=== PATIENT | male | born 1990 | race Caucasian/White ===

== ENCOUNTER 2018-10-10 22:30 | Emergency (ER) | payer BC, SELFPAY ==
[2018-10-10 22:36] VITALS: BP 139/77; PULSE 74; RESP 20; TEMP 37; O2SAT 97
--- NOTE | 2018-10-10 22:56 | W.ED.GENAD ---
Discharge Plan Disposition Patient Disposition: HOME Condition: Good Discharge Details Chief Complaint: Patient Exposure Risk Clinical Impression: Needle stick injury of finger Primary Care Provider: Jackie Bianchi ED Provider: Art Perrin Home Meds and New Rx's Prescriptions: No Action No Known Home Meds RF: 0 Discharge Instructions Instructions: Needle Stick Injuries (ED) Additional Instructions: He will be contacted if any of your results are positive. If you notice any worsening of your symptoms, or any new symptoms such as vomiting, diarrhea, fever, chills, shortness of breath, chest pain, numbness, weakness, or fainting , please return immediately to the emergency department for reevaluation. Please follow up with your primary care provider as soon as possible for reassessment and reevaluation. As always, it was a pleasure participating in your medical care today. Referrals: Jackie Bianchi [Primary Care Provider] - Medical Decision Making This is a pleasant 28-year-old male who presents today for evaluation after having a small superficial abrasion/skin removal secondary to a dirty razor from a prisoner. It occurred roughly 1-2 hours prior to arrival. Tetanus is up-to-date. No evidence of active bleeding. Patient was sent here by his commander. No other abnormalities on physical exam. At a long and thorough discussion with the patient regarding the risks and benefits of HIV prophylaxis, at this time he does not want any HIV prophylaxis at this time. We will draw the labs for hepatitis, and HIV, he will be contacted if these are positive. We discussed red flags which to return the patient understands. I have extensively reviewed the treatment plan and discharge instructions with the patient. I have addressed all patient concerns at this time. The patient was made aware of what symptoms to monitor for that would warrant a return to the emergency department. Discussed the plan with the patient, they demonstrate verbal understanding and agreement with our assessment and plan at this time. HPI General Date/Time Provider Initiated Documentation: 10/10/18 22:45. 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 He got cut with a dirty razor at the half-way. Immediately started bleeding, he immediately washed it with soap and water. Immunizations are up-to-date including tetanus. He denies any associated numbness tingling or weakness. He denies any persistent pain. He has no other complaints at this time. He does not know the HIV or hepatitis status of the person who is using the razor. He denies any IV or illicit drug use, recent surgeries or pertinent family history. He has no other complaints at this time. Related Data Home Medications Medication Instructions Recorded Confirmed Unknown [No Known Home Meds] 10/10/18 10/10/18 Allergies Allergy/AdvReac Type Severity Reaction Status Date / Time naproxen [From Treximet] Allergy Unverified 10/10/18 22:38 sumatriptan [From Treximet] Allergy Unverified 05/31/17 02:39 General Stated Complaint: Patient Exposure Risk LAVERNE: 3 Review of Systems Review of Systems All systems reviewed & are unremarkable except as noted in HPI and below PFSH Social History Smoking/Tobacco Use Status: Current every day Exam Narrative Exam Narrative: 1.Const: Well-nourished, Well-developed, appearing stated age 2.Eyes: PERRL, no conjunctival injection, and symmetrical lids. 3.ENT: Atraumatic external nose and ears. Moist MM. Neck: Symmetric, trachea midline, No thyromegaly. 4.CVS: +S1/S2, No murmurs or gallops. Peripheral pulses 2+ and equal in all extremities. Brisk capillary refill in all extremities. 5.RESP: Unlabored respiratory effort. Clear to auscultation bilaterally. No wheezes rales or rhonchi 6.GI: Soft, Nontender/Nondistended, No hepatosplenomegaly. No guarding or rebound. 7.MSK: Normocephalic/Atraumatic, Extremities w/o deformity or ttp No cyanosis or clubbing, Normal movement of all extremities 8.Skin: Warm, Dry. There is a very small abrasion/superficial skin removal present on the distal tip of the ring finger on his left hand. No active bleeding, no signs of deep tissue involvement. No other abnormality. No presence of foreign body. 9.Neuro: credit control assistant II-XII grossly intact. Sensation grossly intact, no focal neurologic deficits. 10.Psych: (AAO) x3. Appropriate mood and affect Course Vital Signs Temperature 37.0 C 10/10/18 22:36 Pulse 74 10/10/18 22:36 Respiratory Rate 20 10/10/18 22:36 Blood Pressure 139/77 10/10/18 22:36 Pulse Oximetry 97 10/10/18 22:36 Temperature 37.0 C 10/10/18 22:36 Temperature Source Temporal Artery Scan 10/10/18 22:36 Pulse 74 10/10/18 22:36 Respiratory Rate 20 10/10/18 22:36 Respiratory Effort Non-Labored 10/10/18 22:36 Blood Pressure 139/77 10/10/18 22:36 Blood Pressure Position Sitting 10/10/18 22:36 Pulse Oximetry 97 10/10/18 22:36 Oxygen Delivery Method Room Air 10/10/18 22:36 Oxygen Flow Rate 0 10/10/18 22:36 Pain Level 0 10/10/18 22:36
[2018-10-10 23:32] LABS: HIV 1/2 Ab Rapid Negative (Negative)
[2018-10-12 11:24] LABS: Hepatitis A Antibody IgM Negative (NEGAT); Hepatitis B Core Antibody Negative (NEGAT); Hepatitis B surface Ag Negative (NEGAT); Hepatitis C Ab w Rflx HCV PCR Negative (NEGAT)
[2018-10-15 15:03] LABS: HIV-1 RNA Quantification Undetected copies/mL (UNDECT)
== END 2018-10-10 23:08 | disposition home or self-care (01) ==
PROVIDERS: Emergency Provider Student in an Organized Health Care Education/Training Program; PCP Nurse Practitioner Family
DX: S60.415A Abrasion of left ring finger, initial encounter (principal); W26.8XXA Contact with other sharp object(s), not elsewhere classified, initial encounter; Z20.9 Contact with and (suspected) exposure to unspecified communicable disease
CPT/HCPCS: 86704; 86709; 86803; 87340; 87536; 99283

== ENCOUNTER 2019-04-24 22:37 | Emergency (ER) | payer BC, SELFPAY ==
[2019-04-24 22:38] VITALS: BP 128/82; PULSE 76; RESP 16; TEMP 36.5; O2SAT 96
--- NOTE | 2019-04-24 23:04 | W.ED.GENAD ---
Discharge Plan Disposition Patient Disposition: HOME Condition: Stable Discharge Details Chief Complaint: Headache Clinical Impression: Headache, migraine, Chronic pain in right shoulder Primary Care Provider: Jackie Bianchi ED Provider: Mazin Aponte Home Meds and New Rx's Prescriptions: Continued prochlorperazine maleate 5 mg tablet 5 mg PO Q8H PRN (Reason: headache, nausea) Qty: 15 RF: 0 Discharge Instructions Instructions: Migraine Headache (ED), Shoulder Pain (ED) Additional Instructions: Return immediately to the emergency department for any new or worsening symptoms, change in your headache pattern, or further concerns. Otherwise it is very important that you follow-up with orthopedist for reassessment of your shoulder pain and follow-up with your primary care provider for reassessment of your headaches if you continue to have them and need different control medications. Stand Alone Forms: Work Release Referrals: Marty Carl [ [facility]IC[facility]] - (For follow-up of your shoulder pain) Jackie Bianchi [Primary Care Provider] - 1 week (For reassessment of your headaches) Discharge Data Discharge Date/Time-TO BE ENTERED AT DEPARTURE: 04/25/19 00:00 Medical Decision Making Patient presenting the emergency department for chief complaint of headache. Patient states that when he awoke this morning he noticed a slight headache that he thought was tension related. Patient states long ongoing chronic history of headaches which she has seen neurology for. Patient also states chronic right shoulder pain [facility] Patient denies any reinjury or trauma to right shoulder just occasional pain and discomfort. Patient has completely normal neurological exam, and exam of right shoulder shows full range of motion, no strength deficiency, tenderness to AC joint otherwise unremarkable exam. Given patient has postsurgical pain with no acute findings and no acute injury I do not feel that any emergent work-up is needed for this complaint at this time. Patient was encouraged to follow-[facility] with [facility]. As far as migraine goes patient states similar migraines in the past, not worst headache of life, no fever no chills, no acute physical exam findings of concern so plan to treat with IV fluids, ketorolac, Compazine, and Benadryl and reassess patient. Patient reassessed and has no new or worsening symptoms but still does state slight migraine headache but has had some improvement. Given patient's history of migraine headaches but no other worrisome findings I do feel patient is able to be safely discharged. Patient was represcribed his Compazine as recommended for his breakthrough headaches otherwise patient should follow-up with his primary care provider for reassessment of his headaches. Given patient's chronic right shoulder pain I informed patient he should follow-up with his orthopedic surgeon given that this is a postsurgical complaint. Patient was given a work note for 1 day and return precautions were discussed. HPI General Mode of arrival: ambulatory. Date/Time Provider Initiated Documentation: 04/24/19 22:42. Limitations to Documentation: no limitations. Information obtained by: patient, RN notes reviewed and old records reviewed. History of Present Illness 28 year old M presents to the emergency department with the chief complaint of Migraine headache, right shoulder pain, described as similar to prior episodes, with intensity rated at 7. Quality is described as aching, and is localized to the head. Patient started experiencing this hour(s) (15) and it has been constant. No relieving factors improve symptom(s), No exacerbating factors reported . Related Data Home Medications Medication Instructions Recorded Confirmed prochlorperazine maleate 5 mg PO Q8H PRN #15 tab 04/24/19 Previous Rx's Medication Instructions Recorded prochlorperazine maleate 5 mg PO Q8H PRN #15 tab 04/24/19 Allergies Allergy/AdvReac Type Severity Reaction Status Date / Time naproxen [From Treximet] Allergy Unverified 01/08/19 09:59 sumatriptan [From Treximet] Allergy Unverified 01/08/19 09:59 General Stated Complaint: Headache LAVERNE: 3 Review of Systems Constitutional Denies chills, Denies fever(s) and Reports headache(s) Eyes Denies change in vision ENT Denies dizziness and Reports headache(s) Cardiovascular Denies chest pain and Denies syncope Gastrointestinal Reports nausea and Reports vomiting Musculoskeletal Reports arthralgias (Right shoulder pain-chronic postsurgical) Neurologic Reports as per HPI, Denies dizziness, Denies syncope, Reports headache(s) and Denies sensory deficit [facility] Medical History Headache, chronic migraine without aura (Acute) Injury of right shoulder (Acute) Tinnitus (Acute) Tobacco use (Acute) Surgical History H/O left knee surgery (Acute) Status post AC joint resection (Acute) Family History Mother Migraines Social History Smoking/Tobacco Use Status: Current every day Tobacco Type: cigarettes Alcohol Intake: current Alcohol Intake frequency: a few times a week Drug use: Never Do you feel safe at home: Yes Do you feel safe in your relationship?: Yes Exam Const General: cooperative, healthy appearing, no acute distress and well groomed Orientation: alert, awake and oriented x3 HENMT Head: normal to inspection Ears: hearing grossly normal bilaterally and TM's normal bilaterally Mouth: oral mucosae normal and moist mucous membranes Throat: posterior oropharynx normal Eyes Visual Cobb: normal visual cobb by confrontation Alignment and Position: alignment normal Periorbital: periorbital findings normal Eyelids: eyelids normal Sclera: sclerae normal Cornea: corneas normal Pupils: PERRL EOM: EOM intact bilaterally Neck Neck: normal visual inspection, full ROM, no lymphadenopathy and no meningeal signs Resp Effort & Inspection: normal respiratory effort and able to speak in complete sentences Auscultation: clear to auscultation bilaterally Cardio Rate: regular rate Rhythm: regular rhythm Heart Sounds: S1 normal and S2 normal Neuro General: alert, awake, oriented x3, gait normal, tone normal, moves all extremities, CN's II-XI intact bilaterally and not confused Cognition: normal cognition Speech: speech normal Motor: muscle tone normal throughout, strength 5/5 throughout, no pronator drift, no movement abnormalities noted and no fasciculations Sensory Exam: no sensory deficits noted Coordination: Romberg test normal and Does not sway with eyes open Extrem Right upper extremity: shoulder/upper arm Details: normal to inspection, tenderness Location: of the A-C joint, axillary nerve sensory function normal and normal ROM; no crepitus and no deformity Course Vital Signs Temperature 36.5 C 04/24/19 22:38 Pulse 76 04/24/19 22:38 Respiratory Rate 16 04/24/19 22:38 Blood Pressure 128/82 04/24/19 22:38 Pulse Oximetry 96 04/24/19 22:38 Temperature 36.5 C 04/24/19 22:38 Temperature Source Skin 04/24/19 22:38 Pulse 76 04/24/19 22:38 Respiratory Rate 16 04/24/19 22:38 Respiratory Effort Non-Labored 04/24/19 22:42 Blood Pressure 128/82 04/24/19 22:38 Blood Pressure Position Sitting 04/24/19 22:38 Pulse Oximetry 96 04/24/19 22:38 Oxygen Delivery Method Room Air 04/24/19 22:38 Oxygen Flow Rate 0 04/24/19 22:38
[2019-04-24] MEDS: Ketorolac 30 MG/ML VIAL IVP (23:10)
[2019-04-24] MEDS: Prochlorperazine 10 MG/2 ML VIAL 5 MG IVP (23:11)
[2019-04-24] MEDS: diphenhydrAMINE 50 MG/ML VIAL 25 MG IVP (23:11)
[2019-04-24] MEDS: Normal Saline 1,000 ML 1000 ML IV (23:12)
[2019-04-25 00:29] VITALS: BP 122/62; PULSE 68; RESP 16; TEMP 36.5; O2SAT 98
== END 2019-04-25 | disposition home or self-care (01) ==
PROVIDERS: Emergency Provider Nurse Practitioner Family; PCP Nurse Practitioner Family
DX: G43.909 Migraine, unspecified, not intractable, without status migrainosus (principal); M25.511 Pain in right shoulder; G89.29 Other chronic pain; R11.2 Nausea with vomiting, unspecified
CPT/HCPCS: 96361; 96374; 96375; 99284; J0780; J1200; J1885

== ENCOUNTER 2019-10-24 12:25 | Emergency (ER) | payer BC, SELFPAY ==
[2019-10-24 12:28] VITALS: BP 142/83; PULSE 78; RESP 18; TEMP 36.8; O2SAT 97
[2019-10-24] MEDS: Normal Saline 1,000 ML 1000 ML IV (13:00)
[2019-10-24 13:15] LABS: HCT 40.9 % (40.0-50.0); HGB 14.7 g/dL (13.5-17.5); Mean Corp. HGB Concentration 35.9 g/dL (32.0-36.0); Mean Corpuscular Hemoglobin 32.1 pg (27.0-33.0); Mean Corpuscular Volume 89.3 fL (80-95); Mean Platelet Volume 9.8 fL (8.0-11.0); Platelet Count 281 x1000/uL (130-400); RBC 4.58 m/cumm (4.50-6.00); RBC Distribution Width 13.1 % (11.8-14.1); White Blood Cell Count 10.91 k/cumm (4.4-10.8)
--- NOTE | 2019-10-24 13:20 | ED.GENADUL_ITS ---
Discharge Plan Disposition Patient Disposition: HOME Condition: Stable Discharge Details Chief Complaint: Headache Clinical Impression: Cephalalgia Primary Care Provider: Jackie Bianchi ED Provider: Aston Khan Home Meds and New Rx's Prescriptions: Continued prochlorperazine maleate 5 mg tablet 5 mg PO Q8H PRN (Reason: headache, nausea) Qty: 15 RF: 0 Discharge Instructions Instructions: General Headache (ED) Additional Instructions: At this time your symptoms have drastically improved. Pain is now a 2 out of 10, you have no nausea, and your light sensitivity has almost resolved completely. Continue taking your current medications as directed, you may also add on [id number] Tylenol and/or Motrin as directed for discomfort. Please watch for new or worsening symptoms and return to the ER for any concerns. I do recommend reaching out to your neurology team for prompt outpatient reevaluation Medical Decision Making 29-year-old gentleman with a longstanding history of similar headaches, having already been worked up by neurology, presents for a progressing headache that began late over night, early this morning. Associated with his typical photophobia, nausea, vomiting. He took his Compazine with little relief. Patient is neurologically intact, appears well, no acute distress. CBC and CMP were ordered per protocol prior to my evaluation. No meningeal signs, no signs of infection. No clear indication for imaging of his head-brain or LP. Will give IV fluid, Benadryl, Toradol and Reglan followed by reassessment. Upon reassessment patient reports his pain has come down from an 8 now down to a 2, denies any nausea whatsoever, and reports only minimal photophobia. Patient appears well, no distress whatsoever, and remains neurologically intact. Discussed our options, he is comfortable with discharge. He will contact his neurology team for follow-up otherwise return to the ER for new or evolving symptoms. Medical Records Medical records reviewed: Yes I reviewed the patient's medical records. Lab Data Lab results reviewed: Yes I reviewed the patient's lab results. Lab results narrative: Laboratory Tests Range/Units 10/24/19 10/24/19 12:57 12:57 WBC (4.4-10.8) k/cumm 10.91 H RBC (4.50-6.00) m/cumm 4.58 Hgb (13.5-17.5) g/dL 14.7 Hct (40.0-50.0) % 40.9 MCV (80-95) fL 89.3 MCH (27.0-33.0) pg 32.1 MCHC (32.0-36.0) g/dL 35.9 RDW (11.8-14.1) % 13.1 Plt Count (130-400) x1000/uL 281 MPV (8.0-11.0) fL 9.8 Sodium (136-145) mmol/L 142 Potassium (3.5-5.1) mmol/L 3.8 Chloride (98-107) mmol/L 107 Carbon Dioxide (21.0-32.0) mmol/L 24.7 Anion Gap (3-11) mmol/L 10.3 BUN (7-18) mg/dL 12 Creatinine (0.70-1.30) mg/dL 0.82 Estimated GFR/1.73 m2 (mL/min/1.73m2) >= 60.00 Glucose (74-106) mg/dL 111 H Calcium (8.5-10.1) mg/dL 8.2 L Total Bilirubin (0.2-1.0) mg/dL 0.5 AST (15-37) U/L 10 L ALT (16-63) U/L 28 Alkaline Phosphatase (46-116) U/L 75 Total Protein (6.4-8.2) g/dL 6.9 Albumin (3.4-5.0) g/dL 3.9 HPI General Mode of arrival: ambulatory . Date/Time Provider Initiated Documentation: 10/24/19 12:27 . Limitations to Documentation: no limitations . Information obtained by: patient . HPI Narrative: 29-year-old gentleman who presents to the ER complaining of a migraine. Patient reports that he gets these frequently, nearly once a week, and they are very similar. He reports t hat he went to bed last night asymptomatic, woke up sometime throughout the night and had a dull global headache however it has progressed throughout the day and is now an 8 out of 10. It is associated with nausea, vomiting, and photosensitivity. No vomiting. Patient reports that he has been evaluated by neurology for the same in the past, outpatient work-up including imaging has been benign. He denies recent illness or trauma. He denies any visual changes, neck pain, chest pain, abdominal pain, shortness of breath, numbness, tingling, weakness, incontinence. Patient reports that he took his Compazine around 11:00 this morning but then vomited roughly 1 hour later and unsure if he truly received any medications. Related Data Home Medications Medication Instructions Recorded Confirmed prochlorperazine maleate 5 mg PO Q8H PRN #15 tab 04/24/19 10/24/19 Previous Rx's Medication Instructions Recorded prochlorperazine maleate 5 mg PO Q8H PRN #15 tab 04/24/19 Allergies Allergy/AdvReac Type Severity Reaction Status Date / Time naproxen [From Treximet] Allergy Unverified 01/08/19 09:59 sumatriptan [From Treximet] Allergy Unverified 10/24/19 12:32 General Stated Complaint: Headache LAVERNE: 3 Review of Systems Constitutional Constitutional: Denies chills, Denies fatigue, Denies fever(s), Reports headache(s) and Denies weakness Eyes Eyes: Denies change in vision and Denies other visual disturbances ENT Ears, Nose, Mouth, and Throat: Denies vertigo and Reports headache(s) Cardiovascular Cardiovascular: Denies chest pain and Denies dyspnea Respiratory Respiratory: Denies cough and Denies dyspnea Gastrointestinal Gastrointestinal: Denies abdominal pain, Reports nausea and Reports vomiting Musculoskeletal Musculoskeletal: Denies myalgias and Denies tingling Integumentary/Breasts Skin/Breast: Denies rash Neurologic Neurologic: Denies vertigo, Reports headache(s), Denies other visual disturbances, Denies tingling, Denies paresthesias and Denies weakness Endocrine Endocrine: Denies fatigue [facility] Social History Smoking/Tobacco Use Status: Current every day Tobacco Type: cigarettes Alcohol Intake: current Alcohol Intake frequency: a few times a week Drug use: Never Do you feel safe at home: Yes Do you feel safe in your relationship?: Yes Exam Const General: cooperative, healthy appearing, no acute distress and other (Patient lying supine on the stretcher in room 3 in the dark) Orientation: alert, awake and oriented x3 HENMT Head: normal to inspection, normocephalic and atraumatic Ears: external ears normal, TM's normal bilaterally and EAC's normal Mouth: oral mucosae normal and moist mucous membranes Throat: posterior oropharynx normal Eyes General: appearance normal, both eyes and all related structures Eyelids: eyelids normal Conjunctivae: conjunctivae normal Sclera: sclerae normal Cornea: corneas normal Pupils: PERRL EOM: EOM intact bilaterally Direct ophthalmoscopy: normal light reflex Neck Neck: normal visual inspection, full ROM, no meningeal signs, trachea midline and supple Resp Effort & Inspection: normal respiratory effort Auscultation: clear to auscultation bilaterally Cardio Rate: regular rate Rhythm: regular rhythm Skin General skin exam: no rashes or lesions noted Neuro General: alert, awake, oriented x3 and no focal motor deficits Cranial Nerves: CN's II-XI intact bilaterally Cognition: normal cognition Speech: speech normal Motor: muscle tone normal throughout, strength 5/5 throughout, no pronator drift and no movement abnormalities noted Sensory Exam: no sensory deficits noted Extrem General: normal to inspection Psych Appearance: grossly normal Mental Status: mental status grossly normal Course Vital Signs Vital signs: Vital Signs Temperature 36.8 C 10/24/19 12:28 Pulse 78 10/24/19 12:28 Respiratory Rate 18 10/24/19 12:28 Blood Pressure 142/83 H 10/24/19 12:28 Pulse Oximetry 97 10/24/19 12:28 Temperature 36.8 C 10/24/19 12:28 Temperature Source Skin 10/24/19 12:28 Pulse 78 10/24/19 12:28 Respiratory Rate 18 10/24/19 12:28 Respiratory Effort 10/24/19 12:32 Blood Pressure 142/83 H 10/24/19 12:28 Blood Pressure Position Sitting 10/24/19 12:28 Pulse Oximetry 97 10/24/19 12:28 Oxygen Delivery Method Room Air 10/24/19 12:28 Oxygen Flow Rate 0 10/24/19 12:28 Pain Level 8 10/24/19 12:56 Lab/Test Results Lab/Test Results: Laboratory Tests Range/Units 10/24/19 12:57 WBC (4.4-10.8) k/cumm 10.91 H RBC (4.50-6.00) m/cumm 4.58 Hgb (13.5-17.5) g/dL 14.7 Hct (40.0-50.0) % 40.9 MCV (80-95) fL 89.3 MCH (27.0-33.0) pg 32.1 MCHC (32.0-36.0) g/dL 35.9 RDW (11.8-14.1) % 13.1 Plt Count (130-400) x1000/uL 281 MPV (8.0-11.0) fL 9.8
[2019-10-24 13:29] LABS: ALT 28 U/L (16-63); AST 10 U/L (15-37); Albumin 3.9 g/dL (3.4-5.0); Alkaline Phosphatase 75 U/L (46-116); Anion Gap 10.3 mmol/L (3-11); BUN 12 mg/dL (7-18); Bilirubin, Total 0.5 mg/dL (0.2-1.0); CO2 24.7 mmol/L (21.0-32.0); CREATININE 0.82 mg/dL (0.70-1.30); Calcium 8.2 mg/dL (8.5-10.1); Chloride 107 mmol/L (98-107); Glucose 111 mg/dL (74-106); Potassium 3.8 mmol/L (3.5-5.1); Sodium 142 mmol/L (136-145); Total Protein 6.9 g/dL (6.4-8.2)
[2019-10-24] MEDS: diphenhydrAMINE 50 MG/ML VIAL IVP (13:42)
[2019-10-24] MEDS: Metoclopramide 10 MG/2 ML VIAL IVP (13:42)
[2019-10-24] MEDS: Ketorolac 30 MG/ML VIAL IVP (13:42)
[2019-10-24 13:44] VITALS: BP 121/71; PULSE 81; RESP 15; TEMP 36.6; O2SAT 97
== END 2019-10-24 14:15 | disposition home or self-care (01) ==
PROVIDERS: Registered Nurse Emergency; Emergency Provider Physician Assistant; PCP Nurse Practitioner Family
DX: R51 Headache (principal); R11.2 Nausea with vomiting, unspecified; H53.143 Visual discomfort, bilateral
CPT/HCPCS: 36415; 80053; 85027; 96361; 96374; 96375; 99284; 99283; J1200; J1885; J2765

== ENCOUNTER 2024-12-05 11:46 | Emergency (ER) | payer SELFPAY ==
[2024-12-05 11:49] VITALS: BP 124/75; PULSE 113; RESP 14; TEMP 36.9; O2SAT 96
--- NOTE | 2024-12-05 12:08 | ED.GENADUL_ITS ---
Discharge Plan Disposition Patient Disposition: Home Discharge Details Clinical Impression: Uvulitis Primary Care Provider: Unknown,Unknown ED Provider: Jaylen Banerjee Home Meds and New Rx's Prescriptions: New amoxicillin-pot clavulanate 875-125 mg tablet 1 tab PO BID 7 Days Qty: 14 0RF Discharge Instructions Additional Instructions: You were seen in the emergency department for your swollen uvula. The airway structures below your uvula did not look to be swollen. Please take these antibiotics out of an abundance of precaution as directed. If you develop difficulty breathing difficulty swallowing or of any chest pain please return to the emergency department. Otherwise please follow-up with primary care provider. Your symptoms may have been caused by obstructive sleep apnea with the possibility that you irritated your uvula last night. If you are able to work to lose any weight this may prevent this from occurring in the future. For your pain please take medications as follows: 1. Take acetaminophen (Tylenol), 1,000 mg (two 500 mg tabs) every 6 hours [2. Take ibuprofen (Advil), 400 mg every 6 hours.] Discharge Data Discharge Date/Time-TO BE ENTERED AT DEPARTURE: 12/05/24 15:00 HPI General Date/Time Provider Initiated Documentation: 12/05/24 12:07 . HPI Narrative: MDM This is an overall quite well-appearing initially tachycardic but normothermic 34-year-old male with uvulitis but no signs of epiglottitis for which patient was treated with dexamethasone broad-spectrum antibiotics with ceftazidime and observed in the emergency department for approximately 3 hours prior to discharge with strict return indications. Patient is vaccinated so my suspicion was low for bacterial tracheitis and he was not toxic appearing. Handling secretions so epiglottitis less likely. Good range of motion in neck making my suspicion low for retropharyngeal abscess. No pain out of proportion to suggest necrotizing soft tissue infection. Given no preceding fevers no URI symptoms it may be possible, as suggested by Dr. Pete from the ear nose and throat team, that the patient had inadvertently exerted traction on his uvula secondary to possible obstructive sleep apnea last night causing sudden onset swelling this morning. Patient reports that his symptoms were slightly improved following steroids. Out of abundance of caution and in consultation with Dr. Pete discharge patient on 7-day course of amoxicillin clavulanic acid. Patient and I discussed that he should return to the ED if he developed any difficulty breathing any difficulty handling his secretions or any shortness of breath. I offered to set him up with a primary care provider but he noted that he had a primary care provider arranged that he was planning on seeing. Given midline uvula I was not suspicious for peritonsillar abscess. He had a swab that was negative for strep and a second swab that was negative for influenza RSV and COVID. He understood his return indications who was discharged with an empiric trial of expectant outpatient management. 12/05/24 12:46 Tonsil - Not Specified Group A Streptococcus Culture - Pending Laboratory Tests Range/Units 12/05/24 12/05/24 12:31 12:36 WBC (4.4-10.8) 10^3/uL 11.47 H RBC (4.36-5.78) 10^6/uL 4.70 Hgb (13.5-17.5) g/dL 14.9 Hct (40.0-50.0) % 41.7 MCV (80-95) fL 89 MCH (27.0-33.0) pg 31.7 MCHC (32.0-36.0) % 35.7 RDW (11.8-14.1) % 12.5 Plt Count (130-400) 10^3/uL 288 MPV (8.0-11.0) fL 9.4 Immature Gran % % 0.4 Neutrophils % % 80.4 Lymphocytes % % 13.9 Monocytes % % 4.7 Eosinophils % % 0.3 Basophils % % 0.3 Nucleated RBC % (0.0-0.3) % 0.0 Absolute Neutrophils (1.2-6.7) 10^3/uL 9.22 H Absolute Lymphocytes (1.2-3.4) 10^3/uL 1.59 Absolute Monocytes (0.1-0.8) 10^3/uL 0.54 Absolute Eosinophils (0.0-0.7) 10^3/uL 0.03 Absolute Basophils (0.0-0.2) 10^3/uL 0.03 Sodium (136-145) mmol/L 141 Potassium (3.5-5.1) mmol/L 4.1 Chloride (98-107) mmol/L 105 Carbon Dioxide (21.0-32.0) mmol/L 25.0 Anion Gap (3-11) mmol/L 11.0 BUN (7-18) mg/dL 19 H Creatinine (0.70-1.30) mg/dL 1.0 Est GFR (CKD-EPI 2020) (mL/min/1.73m2) 101.92 Glucose (74-106) mg/dL 133 H Calcium (8.5-10.1) mg/dL 9.2 COVID-19 Source Nasopharynx SARS-CoV-2 (PCR) (Negative) Negative Influenza Type A (PCR) (Negative) Negative Influenza Type B (PCR) (Negative) Negative RSV (PCR) (Negative) Negative Abnormal Labs 12/05/24 12:36 WBC 11.47 H Absolute Neutrophils 9.22 H BUN 19 H Glucose 133 H Vital Signs Temperature 36.9 C 12/05/24 14:30 Temperature Source Temporal Artery Scan 12/05/24 14:30 Pulse 89 12/05/24 14:30 Respiratory Rate 15 12/05/24 14:30 Blood Pressure 125/78 12/05/24 14:30 Blood Pressure Position Sitting 12/05/24 11:49 Pulse Oximetry 96 12/05/24 14:30 Oxygen Delivery Method Room Air 12/05/24 14:30 Oxygen Flow Rate 0 12/05/24 14:30 Pain Level 0 12/05/24 14:30 Intake & Output 12/04/24 12/05/24 12/05/24 23:59 11:59 23:59 Intake Total 210 / 210 Balance 210 / 210 Weight 99.79 kg Intake: IV 210 / 210 Abnormal Labs 12/05/24 12:36 WBC 11.47 H Absolute Neutrophils 9.22 H BUN 19 H Glucose 133 H HPI This is a previously healthy 34-year-old male with no significant past medical history not on any home medications arrived in the emergency department via private vehicle in the setting of pain and swelling in the back of his throat. He reported that he had no symptoms last night. He vomited several times today after coughing. He is a daily tobacco user occasionally drinks ethanol but denies IV drug use. He received all his immunizations growing up. He has had no sick contacts recently. No fevers nor nausea. Patient does have some shortness of breath. Exam General: Well-appearing in no acute distress speaking in complete sentences. Head: Normocephalic, atraumatic. Eye: Extraocular eye movements intact. No conjunctival injection. No scleral icterus. Ear, nose, mouth, throat: Markedly swollen uvula. Slightly muffled voice, handling secretions normally. No significant tonsillar swelling. See pictures of uvula had epiglottitis and irregular folds as follows: Neck: Trachea midline. Good range of motion in neck. Cardiovascular: Well-perfused distal extremities. Respiratory: Nonlabored respiration. Clear lungs bilaterally. Gastrointestinal: Nondistended abdomen. Musculoskeletal: No edema. Moving all 4 extremities spontaneously. Skin: Normal for age and race, grossly normal temperature and turgor. No acute rash. Neurologic: Alert and appropriate, no apparent acute deficits. Psychiatric: Mood and manner are appropriate. Grooming and personal hygiene are appropriate. Related Data Home Medications ?Medication ?Instructions ?Recorded ?Confirmed amoxicillin 875 mg-potassium 1 tab PO BID 7 days #14 tabs 12/05/24 clavulanate 125 mg tablet Previous Rx's ?Medication ?Instructions ?Recorded amoxicillin 875 mg-potassium 1 tab PO BID 7 days #14 tabs 12/05/24 clavulanate 125 mg tablet Allergies Allergy/AdvReac Type Severity Reaction Status Date / Time naproxen (From Treximet) Allergy Severe Anaphylaxis Verified 12/05/24 11:56 sumatriptan (From Treximet) Allergy Anaphylaxis Verified 12/05/24 11:56 General Stated Complaint: Sorethroat LAVERNE: 3 Course Vital Signs Vital signs: Vital Signs Temperature 36.9 C 12/05/24 11:49 Pulse 113 H 12/05/24 11:49 Respiratory Rate 14 12/05/24 11:49 Blood Pressure 124/75 12/05/24 11:49 Pulse Oximetry 96 12/05/24 11:49 Temperature 36.9 C 12/05/24 11:49 Temperature Source Temporal Artery Scan 12/05/24 11:49 Pulse 113 H 12/05/24 11:49 Respiratory Rate 14 12/05/24 11:49 Blood Pressure 124/75 12/05/24 11:49 Blood Pressure Position Sitting 12/05/24 11:49 Pulse Oximetry 96 12/05/24 11:49 Oxygen Delivery Method Room Air 12/05/24 11:49 Oxygen Flow Rate 0 12/05/24 11:49 Pain Level 0 12/05/24 11:49 Medical Decision Making Quality:SDOH Health Related Social Needs: 2 No Data to Display PFSH All Active Problems (Updated 12/05/24 @ 14:51 by Jaylen Banerjee MD) Uvulitis (Acute) Cephalalgia (Acute) Medical History (Updated 12/05/24 @ 14:51 by Jaylen Banerjee MD) Headache, chronic migraine without aura Injury of right shoulder Tobacco use Tinnitus Surgical History H/O left knee surgery Status post AC joint resection Family History Mother Migraines Social History Smoking/Tobacco Use Status: Current every day Tobacco Type: cigarettes Smoking risk assessment performed?: Yes Alcohol Intake: current Alcohol Intake frequency: a few times a week Drug use: Never Do you feel safe at home: Yes Do you feel safe in your relationship?: Yes
[2024-12-05] MEDS: Dexamethasone 10 MG/ML VIAL IVP (12:37)
[2024-12-05] MEDS: ACETAMINOPHEN 1,000 MG/100 ML BAG 400 MG IVPB (12:38)
[2024-12-05] MEDS: Normal Saline 1,000 ML 1000 ML IV (12:39)
[2024-12-05] MEDS: Ondansetron 4 MG/2 ML VIAL IVP (12:44)
[2024-12-05 12:46] LABS: Abs Immature Grans 0.05 10^3/uL (0.0-0.06); Absolute Eosinophil Count 0.03 10^3/uL (0.0-0.7); Absolute Lymphocyte Count 1.59 10^3/uL (1.2-3.4); Absolute Monocyte Count 0.54 10^3/uL (0.1-0.8); Absolute Neutrophil Count 9.22 10^3/uL (1.2-6.7); Basophils % 0.3 %; Eosinophils % 0.3 %; HCT 41.7 % (40.0-50.0); HGB 14.9 g/dL (13.5-17.5); Immature Grans % 0.4 %; Lymphocytes % 13.9 %; MCH 31.7 pg (27.0-33.0); MCHC 35.7 % (32.0-36.0); MCV 89 fL (80-95); MPV 9.4 fL (8.0-11.0); Monocytes % 4.7 %; Neutrophils % 80.4 %; Platelet Count 288 10^3/uL (130-400); RDW 12.5 % (11.8-14.1); RDW-SD 40.7 fL; WBC 11.47 10^3/uL (4.4-10.8)
[2024-12-05 12:48] LABS: Absolute Basophil Count 0.03 10^3/uL (0.0-0.2)
[2024-12-05] MEDS: cefTAZidime 2,000 MG in Normal Saline 100 ML 200 MG IVPB (12:58)
[2024-12-05 13:01] LABS: BUN 19 mg/dL (7-18); Calcium 9.2 mg/dL (8.5-10.1); Chloride 105 mmol/L (98-107); Estimated GFR 101.92 (mL/min/1.73m2); Glucose 133 mg/dL (74-106); Potassium 4.1 mmol/L (3.5-5.1); Sodium 141 mmol/L (136-145)
[2024-12-05 13:24] LABS: COVID-19 PCR Negative (Negative); Influenza A PCR Negative (Negative); Influenza B PCR Negative (Negative); RSV PCR Negative (Negative)
[2024-12-05 13:29] LABS: Source Nasopharynx
[2024-12-05 14:29] VITALS: BP 125/78; PULSE 89; RESP 15; O2SAT 96
[2024-12-05 14:30] VITALS: BP 125/78; PULSE 89; RESP 15; TEMP 36.9; O2SAT 96
[2024-12-05] MEDS: Benzocaine 20% Gel 30 GM JAR MM (14:53)
== END 2024-12-05 15:00 | disposition home or self-care (01) ==
PROVIDERS: Emergency Provider Emergency Medicine
DX: K12.2 Cellulitis and abscess of mouth (principal); F17.210 Nicotine dependence, cigarettes, uncomplicated
CPT/HCPCS: 36415; 80048; 87637; 87880; 96365; 96375; 99284; 85025; 87081; J0131; J0713; J1100; J2405

== ENCOUNTER 2025-02-22 19:20 | Emergency (ER) | payer SELFPAY ==
[2025-02-22 19:37] VITALS: BP 159/76; PULSE 76; RESP 20; TEMP 36.6; O2SAT 98
--- NOTE | 2025-02-22 19:45 | DI.RAD_ITS ---
Exam(s) XR FOOT LT COMPLETE EXAM: XR FOOT LT COMPLETE CLINICAL HISTORY: lateral foot pain s/p tripping. TECHNIQUE: 2D digital imaging was performed. COMPARISON: No exams were available for comparison FINDINGS: 3 views No evidence of acute fracture or diastasis of the Lisfranc joint. Great toe metatarsal joint appears unremarkable as do the other articulations. Appears to be an element of pes cavus. No inferior calcaneal spur. No enthesophytes. IMPRESSION: No fractures evident. There is an element of high arch/pes cavus. If clinically indicated lateral view can be repeated with weight-bearing 2 to determine if this is a true finding. DATA REPOSITORY: RADIATION DOSE DELIVERED:
--- NOTE | 2025-02-22 19:46 | ED.GENADUL_ITS ---
Discharge Plan Disposition Patient Disposition: Home Condition: Stable Discharge Details Clinical Impression: Sprain of left foot Primary Care Provider: Unknown,Unknown ED Provider: Eduardo Miranda Home Meds and New Rx's Prescriptions: No Action No Known Home Meds Discharge Instructions Additional Instructions: Your x-ray on my read did not show any concerning findings at this time. If the radiologist sees anything of concern I will give you a call. If you are not improving within a week follow-up with your primary care provider or express care. If you have severe worsening pain or feel significantly more ill return to the emergency department for reevaluation. You can take 600 mg of ibuprofen and 1000 mg of acetaminophen every 6 hours as needed. HPI General Mode of arrival: ambulatory . Date/Time Provider Initiated Documentation: 02/22/25 19:41 . Limitations to Documentation: no limitations . Information obtained by: patient . History of Present Illness 34 year old M presents to the emergency department with the chief complaint of left foot pain, described as moderate, Quality is described as aching, and is localized to the left and lower extremity. Patient started experiencing this hour(s) (3) and it has been constant. Rest improves symptom(s), Movement worsens symptoms . Patient notes no other symptoms.. Patient did receive the following treatments prior to arrival, none Related Data Home Medications ?Medication ?Instructions ?Recorded ?Confirmed Unknown [No Known Home Meds] 02/22/25 0 02/22/25 Allergies Allergy/AdvReac Type Severity Reaction Status Date / Time sumatriptan (From Treximet) Allergy Anaphylaxis Verified 02/22/25 19:42 General Stated Complaint: Orthopedic LAVERNE: 3 Review of Systems All systems reviewed & are unremarkable except as noted in HPI and below Constitutional Constitutional: Denies chills and Denies fever(s) Cardiovascular Cardiovascular: Denies chest pain and Denies dyspnea Respiratory Respiratory: Denies dyspnea Gastrointestinal Gastrointestinal: Denies abdominal pain and Denies vomiting Musculoskeletal Musculoskeletal: Reports other (left foot injury) Exam Const General: no acute distress Orientation: alert [facility] Head: normal to inspection Ears: external ears normal General nose exam: external nose normal Mouth: moist mucous membranes Eyes General: appearance normal, both eyes and all related structures Neck Neck: normal visual inspection Resp Effort & Inspection: normal respiratory effort and able to speak in complete sentences Cardio Rate: regular rate Skin General skin exam: no rashes or lesions noted Neuro General: patient alert and patient oriented x3 Extrem General: full ROM and capillary refill normal Psych Mental Status: mental status grossly normal Course Vital Signs Vital signs: Vital Signs Temperature 36.6 C 02/22/25 19:37 Pulse 76 02/22/25 19:37 Respiratory Rate 20 02/22/25 19:37 Blood Pressure 159/76 H 02/22/25 19:37 Pulse Oximetry 98 02/22/25 19:37 Temperature 36.6 C 02/22/25 19:37 Temperature Source Oral 02/22/25 19:37 Pulse 76 02/22/25 19:37 Respiratory Rate 20 02/22/25 19:37 Blood Pressure 159/76 H 02/22/25 19:37 Blood Pressure Position Sitting 02/22/25 19:37 Pulse Oximetry 98 02/22/25 19:37 Oxygen Delivery Method Room Air 02/22/25 19:37 Oxygen Flow Rate 0 02/22/25 19:37 Pain Level 4 02/22/25 19:37 Medical Decision Making 34-year-old male comes in with left foot injury. He says he was walking on his porch when he tripped and ran the left foot. Denies hitting his head or falling. He has lateral midfoot pain with some swelling. He has no pain in his ankle with full range of motion of the ankle. No pain elsewhere in his leg. He has intact sensation and pulses in the foot. He is able to bear weight with a limp. Suspect sprain versus contusion versus fracture, will proceed with x-rays and reassess. X-ray negative on my read. Turnaround time for virtual radiology is 100 minutes and after discussion with patient he does not want a wait for this read. He has no new pain elsewhere. He is still able to bear weight. I will call him if they see anything of concern. He will follow-up with his PCP or express care if not improving and return precautions given Differential Diagnosis Differential Diagnosis: Fracture, sprain, contusion PFSH All Active Problems (Updated 02/22/25 @ 20:27 by Eduardo Miranda MD) Sprain of left foot (Acute) Cephalalgia (Acute) Medical History (Updated 02/22/25 @ 20:27 by Eduardo Miranda MD) Headache, chronic migraine without aura Injury of right shoulder Tobacco use Tinnitus Surgical History H/O left knee surgery Status post AC joint resection Family History Mother Migraines Social History Smoking/Tobacco Use Status: Current every day Tobacco Type: cigarettes and e-cigarettes Tobacco: How many years used: 18 Smoking risk assessment performed?: Yes Alcohol Intake: current Alcohol Intake frequency: a few times a week Alcohol type: beer and hard liquor Drug use: Never Do you feel safe at home: Yes Do you feel safe in your relationship?: Yes
--- NOTE | 2025-02-22 21:54 | DI.VRAD_ITS ---
PROCEDURE INFORMATION: Exam: XR Left Foot Exam date and time: 02/22/2025 8:04 PM Age: 34 years old Clinical indication: Lateral left foot pain S/P tripping TECHNIQUE: Imaging protocol: Radiologic exam of the left foot. Views: 3 or more views. COMPARISON: No relevant prior studies available. FINDINGS: Bones/joints: No acute fracture. No dislocation. No focal osseous lesion. Soft tissues: No soft tissue radiopaque foreign body. IMPRESSION: No acute findings. Dictated and Authenticated by: Davide Preston MD. Orderin Ruben Clark MD
== END 2025-02-22 20:47 | disposition home or self-care (01) ==
LOC: ER 20:27
PROVIDERS: Emergency Provider Emergency Medicine
DX: S93.602A Unspecified sprain of left foot, initial encounter (principal); X58.XXXA Exposure to other specified factors, initial encounter
CPT/HCPCS: 99283 ×2; 73630